=== PATIENT | female | born 1980 | race Caucasian/White ===

== ENCOUNTER 2021-02-28 06:07 | Emergency (ER) | payer BC ==
[~2021-02-28] VITALS: Ht 162.6 cm; Wt 63.0 kg
[2021-02-28] MEDS ORDERED: AMIT50TA PO (06:14)
[2021-02-28] MEDS ORDERED: birth control tablet PO (06:14)
[2021-02-28] MEDS ORDERED: SERT25TA21 PO (06:14)
[2021-02-28] MEDS ORDERED: SUMA25TA3 PO (06:14)
[2021-02-28 06:53] LABS: BASO # 0.1 10^3/uL (0.0-0.2); BASO % 0.4 % (0.0-1.0); EOS % 0.1 % (0.0-3.0); HEMATOCRIT 42.4 % (36.0-47.0); HEMOGLOBIN 14.6 g/dl (12.0-15.5); LYMPH # 1.6 10^3/uL (1.5-5.0); LYMPH % 13.7 % (24.0-44.0); MEAN CORPUSCULAR HEMOGLOBIN 30.8 pg (27.0-33.0); MEAN CORPUSCULAR HGB CONC 34.4 g/dl (32.0-36.5); MEAN CORPUSCULAR VOLUME 89.5 fl (80.0-96.0); MONO # 0.4 10^3/uL (0.0-0.8); MONO % 3.9 % (2.0-8.0); NEUTROPHILS # 9.3 10^3/uL (1.5-8.5); NEUTROPHILS % 81.5 % (36.0-66.0); PLATELET COUNT, AUTOMATED 247 10^3/uL (150-450); RED BLOOD COUNT 4.74 10^6/uL (4.00-5.40); WHITE BLOOD COUNT 11.4 10^3/uL (4.0-10.0)
[2021-02-28 07:20] LABS: ALT/SGPT 20 U/L (12-78); BILIRUBIN,DIRECT 0.3 MG/DL (0.0-0.2); BLOOD UREA NITROGEN 10 MG/DL (7-18); CALCIUM LEVEL 8.9 MG/DL (8.5-10.1); CARBON DIOXIDE LEVEL 24 MEQ/L (21-32); CHLORIDE LEVEL 106 MEQ/L (98-107); CK-MB VALUE MASS 2.1 NG/ML (<3.6); CPK CREATINE PHOSPHOKINASE 188 U/L (26-192); CREATININE FOR GFR 0.83 MG/DL (0.55-1.30); GLOMERULAR FILTRATION RATE > 60.0 (>58); GLUCOSE, FASTING 115 MG/DL (70-100); LIPASE 83 U/L (73-393); MB/CK RELATIVE INDEX 1.12 (< OR =4); POTASSIUM SERUM 3.4 MEQ/L (3.5-5.1); SODIUM LEVEL 139 MEQ/L (136-145); TOTAL PROTEIN 7.2 GM/DL (6.4-8.2); TROPONIN I < 0.02 NG/ML (< 0.10)
[2021-02-28] MEDS ORDERED: METOCLOPRAMIDE INJ 10MG/2ML VIAL (J2765 PER 1) IV ONE (08:10)
[2021-02-28] MEDS: GASTROGRAFIN SOLUTION 30ML PO SCH ×2 (08:58→09:30)
[2021-02-28 09:03] LABS: HCG, SERUM QUALITATIVE NEGATIVE (NEGATIVE)
[2021-02-28] MEDS ORDERED: ISOVUE-370 76% 100ML VIAL As Ordered ONE (10:01)
--- NOTE | 2021-02-28 11:38 | REP ---
INDICATION: LLQ pain, reported Hx of UC. COMPARISON: None. TECHNIQUE: Standard helical technique after the intravenous administration of 100 cc Isovue 370 and oral bowel preparatory contrast administration. FINDINGS: The lung bases are clear. The liver, gallbladder, spleen, pancreas, adrenal glands, and kidneys are within normal limits. The abdominal aorta and para-aortic regions are within normal limits. There is no evidence of free fluid or free air. There is no evidence of a mass or adenopathy. There is sigmoid colon diverticulosis. Bone window technique throughout the examination shows bilateral L5 spondylolysis without spondylolisthesis or destructive osseous lesion. IMPRESSION: There is no evidence of acute disease. Chronic changes as described above. <Electronically signed by Rafal Alfaro > 02/28/21 [id number]
[2021-02-28 13:00] VITALS: BP 122/76
--- NOTE | 2021-02-28 17:12 | ECGEPIP ---
[facility] - ED Test Date: 2021-02-28 Pat Name: ANALI KUMAR Department: Room: - Gender: Female Qc Tech: freddy : 1980 Requested By: SERVANDO Cote Order Number: [id number] Reading MD: Bharat Fuller Measurements Intervals [place] Rate: 62 P: 45 NE: 136 QRS: 79 QRSD: 82 T: 51 QT: 480 QTc: 487 Interpretive Statements Normal sinus rhythm Prolonged QTc interval Comparison tracing not on file Electronically Signed on 02-28-2021 17:12:08 EDT by Bharat Fuller
== END 2021-02-28 13:11 | disposition home or self-care (01) ==
LOC: M ED 06:07
DX: K57.30 Diverticulosis of large intestine without perforation or abscess without bleeding (principal); K58.9 Irritable bowel syndrome, unspecified; R11.10 Vomiting, unspecified; G43.909 Migraine, unspecified, not intractable, without status migrainosus; Z87.19 Personal history of other diseases of the digestive system; Z79.899 Other long term (current) drug therapy
CPT/HCPCS: 74177; 80048; 80076; 82550; 82553; 83690; 84484; 84703; 85025; 93005; 93041; 96374; 99284; J2765; Q9963; Q9967